=== PATIENT | female | born 1975 | race Caucasian/White ===

== ENCOUNTER 2022-02-15 18:33 | Emergency (ER) | payer OTHER ==
[2022-02-15] MEDS ORDERED: Diphtheria,Pertussis(Acell),Tetanus Vaccine 0.5 ML Syringe IM ONE (20:09)
[2022-02-15 20:28] VITALS: BP 143/82; PULSE 79
== END 2022-02-15 20:35 | disposition still patient (30) ==
LOC: FB.ED 18:33
DX: S00.03XA Contusion of scalp, initial encounter (principal); F10.129 Alcohol abuse with intoxication, unspecified; Z88.0 Allergy status to penicillin; Y90.5 Blood alcohol level of 100-119 mg/100 ml; Z88.6 Allergy status to analgesic agent; Z23 Encounter for immunization; W22.09XA Striking against other stationary object, initial encounter
CPT/HCPCS: 12001; 36415; 70450; 72125; 80053; 80307; 85025; 85610; 90471; 90715; 99283; 99285-25